=== PATIENT | female | born 1965 | race Caucasian/White ===

== ENCOUNTER 2019-04-11 13:18 | Outpatient (CLI) | payer BC, SELFPAY ==
--- NOTE | 2019-04-11 | US_ITS ---
WS: [id number] TRANSABDOMINAL PELVIC AND TRANSVAGINAL PELVIC ULTRASOUND HISTORY: PELVIC PAIN IN FEMALE COMPARISON: 04/01/2009 Uterus: 7.4 cm x 4.4 cm x 2.4 cm. Small atrophic uterus is anteverted with no mass identified. Endometrium: 2 mm. Thin atrophic uterus. Small amount of fluid along the endometrial canal. Right ovary: 1.6 cm x 1.1 cm x 1.5 cm. Small atrophic uterus. No solid or cystic mass. Left ovary: 1.6 cm x 1.0 cm x 1.4 cm. Small atrophic uterus. No solid or cystic mass. No free fluid. US/US pelvic with transvaginal IMPRESSION: 1. Thin endometrium with no mass identified. 2. No adnexal mass.
== END 2019-04-11 13:19 | disposition home or self-care (01) ==
LOC: RADOUTREAD 14:25
PROVIDERS: Family Provider Internal Medicine; PCP Internal Medicine; Visit Provider Internal Medicine
DX: Z76.89 Persons encountering health services in other specified circumstances (principal)

== ENCOUNTER 2019-04-20 09:17 | Outpatient (CLI) | payer BC, SELFPAY ==
--- NOTE | 2019-04-20 09:31 | CT_ITS ---
WS: [id number] CT ABDOMEN AND PELVIS WITH CONTRAST HISTORY: RIGHT upper quadrant pain. TECHNIQUE: Imaging performed of the abdomen and pelvis with IV contrast. Single phase imaging of the abdomen. Coronal and sagittal reformats are submitted. All CT scans at [facility] use at least one of these dose optimization techniques: automated exposure control; mA and/or kV adjustment per patient size (includes targeted exams where dose is matched to clinical indication); or iterativ e reconstruction. IV CONTRAST: Omnipaque 300; 95 mL IV. Oral contrast: Yes. DLP: 1126.37 mGycm COMPARISON: None available. Lower thorax: Benign calcified granulomas at the lung bases. Heart is normal size. Small hiatal herni a. Liver/biliary system: Normal size with no intrahepatic dilatation. Gallbladder: Normal. No gallstones or wall thickening. No pericholecystic fluid. Pancreas: Normal. Spleen: Normal. Adrenal glands: Normal. Right kidney: Cortical cyst lower pole measures 7 mm. No obstruction or calcification. Left kidney: Normal size kidney. Cortical cyst lower pole measures 7 mm. No obstruction or mass. Aorta: Mild tortuosity and atherosclerosis aorta. No aneurysm. Lymphadenopathy: None. Free fluid: None. GI tract: Unremarkable. Abdominal wall: Small umbilical hernia contains fat only. Pelvis: Normally distended urinary bladder. No free fluid or adenopathy. Uterus is atrophic and allan lly positioned. No pelvic mass. Bones: Severe thoracolumbar scoliosis. No fractures. CT/CT abdomen pelvis w con* [id number] IMPRESSION: 1. No acute abdominal or pelvic abnormalities. 2. Small hiatal hernia. 3. Mild atherosclerosis aorta. 4. Severe scoliosis.
[2019-04-20] MEDS: iohexol 300 mg/mL 50 mL Btl PO (11:03)
[2019-04-20] MEDS: iohexol 300 mg/mL 100 mL Btl IV (11:10)
== END 2019-04-20 09:18 | disposition home or self-care (01) ==
LOC: RADWPI 09:24
PROVIDERS: Family Provider Internal Medicine; PCP Internal Medicine; Visit Provider Nurse Practitioner Family
DX: R10.11 Right upper quadrant pain (principal); K44.9 Diaphragmatic hernia without obstruction or gangrene; I70.0 Atherosclerosis of aorta; M41.9 Scoliosis, unspecified
CPT/HCPCS: 74177; Q9967

== ENCOUNTER 2019-08-16 10:18 | Outpatient (CLI) | payer BC, SELFPAY ==
--- NOTE | 2019-08-16 10:19 | MM_ITS ---
WS: [id number] BILATERAL DIGITAL SCREENING MAMMOGRAPHY WITH CAD CLINICAL INFORMATION: SCREENING HISTORY: Screening mammogram. No current complaints. COMPARISON: September 09, 2017 TECHNIQUE: Bilateral CC and MLO views. FINDINGS: Scattered fibroglandular densities bilaterally. No suspicious focal mass, asymmetry, calcifications, or architectural distortion. No evidence of malignancy. MM/[place] [id number] IMPRESSION: BI-RADS: 1-Negative FOLLOW UP: 1 Year Follow-up Recommend return to annual screening mammography.
== END 2019-08-16 10:19 | disposition home or self-care (01) ==
LOC: RADSHAW 10:18
PROVIDERS: PCP Internal Medicine; Visit Provider Family Medicine
DX: Z12.31 Encounter for screening mammogram for malignant neoplasm of breast (principal)
CPT/HCPCS: 77067

== ENCOUNTER 2021-09-09 06:36 | Day surgery (SDC) | payer BC, SELFPAY ==
[2021-09-08 12:06] VITALS: BMI 25.9
[2021-09-09] VITALS (10 sets, daily range): BP systolic 106–152; BP diastolic 66–96; PULSE 59–68; RESP 14–18; TEMP 35.6–36.5; O2SAT 94–97
[2021-09-09] MEDS: acetaminophen 1,000 MG/100 ML PIGGYBACK 400 MG IV (07:10)
--- NOTE | 2021-09-09 07:10 | W.PM.OPSUD ---
Surgery/Procedure H&P Update DATE OF PROCEDURE: September 09, 2021 DATE H&P PERFORMED: 08/27/21 H&P UPDATE INFORMATION: I have reviewed H&P completed within last 30 days, I have examined patient prior to procedure and No changes to prior documentation PREOP DIAGNOSIS: hydrosalpinx, pelvic pain PLANNED PROCEDURE: Operation Date: 09/09/21 08:00 Proposed Procedures p Laparoscopic Bilateral Salpingo Oophorectomy 22429,N70.11(Bilateral) - Gabriela Landaverde MD Related Problem List Diagnoses (1) Pelvic pain: (2) Hydrosalpinx:
[2021-09-09] MEDS: ketorolac 30 mg/mL INJ IVP (07:11)
[2021-09-09] MEDS: gabapentin 300 mg Capsule PO (07:11)
[2021-09-09] MEDS: CELEcoxib 200 mg Capsule 400 MG PO (07:11)
[2021-09-09] MEDS: sodium chloride 0.9% 1,000 ML 30 ML IV (07:12)
[2021-09-09 07:23] LABS: Basophils # 0.1 10^3/uL (0.0-0.1); Basophils % 1.1 %; Eosinophils # 0.2 10^3/uL (0.0-0.8); Hematocrit 44.1 % (37.0-47.0); Hemoglobin 14.9 g/dL (11.5-15.3); Lymphocytes # 2.2 10^3/uL (0.8-4.8); Lymphocytes % 29.3 %; Mean Corpuscular HGB Conc 33.8 g/dL (30.0-36.0); Mean Corpuscular Hemoglobin 31.3 pg (28.0-34.0); Mean Corpuscular Volume 92.6 fl (81-99); Mean Platelet Volume 12.4 fL (7.4-10.4); Monocytes # 0.6 10^3/uL (0.2-0.9); Monocytes % 8.3 %; Neutrophils # 4.43 10^3/uL (1.8-7.7); Nucleated Red Blood Cells % 0 %; Platelet Count 227 10^3/cmm (130-400); Red Blood Count 4.76 10^6/uL (4.1-5.3); Red Cell Distribution Width 13.2 % (12.1-15.1); White Blood Count 7.5 10^3/uL (4.0-10.0)
--- NOTE | 2021-09-09 07:55 | ANES.PREANE2 ---
Pre-Anesthetic Assessment Height/Weight: Height 1.8 m Weight 84.368 kg Temp Pulse Resp BP Pulse Ox 97.7 F 67 16 152/96 94 09/09/21 07:02 09/09/21 07:02 09/09/21 07:02 09/09/21 07:02 09/09/21 07:02 Preop Diagnosis: hydrosalpinx, pelvic pain Operation Date: 09/09/21 08:00 Proposed Procedures p Laparoscopic Bilateral Salpingo Oophorectomy 11593,N70.11(Bilateral) - Gabriela Landaverde MD Familial anesthetic complications: None Was Beta Deja taken within 24 hours: Yes Was Clonidine taken within 24 hours: N/A Last intake: Intake Last Liquid Date 09/08/21 Last Liquid Time 23:30 Last Solid Date 09/08/21 Last Solid Time 23:30 Social No alcohol and No tobacco Exam alert, oriented x 3, clear to auscultation bilaterally and regular rate & rhythm Airway Submandibular: within normal limits Cervical ROM: within normal limits Mallampati: Class II CV/HEM Arrythmia (SVT) and Hypertension GI Gastroesophageal Reflux Disease Anesthetic Plan ASA status: 2 Anesthesia: General Medications/Allergies Home Medications Medication Instructions Recorded Confirmed Last Taken Type multivitamin 1 tab PO DAILY 10/10/19 09/09/21 09/08/21 History omeprazole 20 mg capsule,delayed 40 mg PO DAILY 10/10/19 09/09/21 09/08/21 History release sumatriptan succinate 50 mg tablet 50 mg PO Q2H PRN 10/07/20 09/09/21 09/08/21 History topiramate 100 mg tablet 100 mg PO DAILY 10/07/20 09/09/21 09/08/21 History hydrochlorothiazide 25 mg tablet 25 mg PO DAILY #90 tab 12/23/20 09/09/21 09/08/21 Rx metoprolol succinate 100 mg 150 mg PO DAILY #135 tab 12/23/20 09/09/21 09/09/21 Rx tablet,extended release 24 hr Allergies Allergy/AdvReac Type Severity Reaction Status Date / Time Penicillins Allergy ALGY-Rash Verified 09/09/21 06:59 Current Medications Generic Name Dose Route Start Last Admin Trade Name Freq PRN Reason Stop Dose Admin Sodium Chloride 1,000 mls @ 30 mls/hr 09/09/21 06:45 09/09/21 07:12 Sodium Chloride 0.9% IV 09/10/21 06:44 30 mls/hr .Q24H MARISSA Administration PFSH Anesthesia Medical History HTN (hypertension) Migraine No pertinent past medical history neghx: dm, thyroid, dvt/pe PCP: Dr. Tello SVT (supraventricular tachycardia) Surgical History History of colonoscopy S/P appendectomy S/P lumpectomy, right breast S/P tubal ligation Family History Other CAD (coronary artery disease) Cancer Hypertension Stroke Data Anesthesia : 09/09/21 07:10 09/09/21 07:10 Short CBC 09/09/21 Range/Units 07:10 WBC 7.5 (4.0-10.0) 10^3/uL Hgb 14.9 (11.5-15.3) g/dL Hct 44.1 (37.0-47.0) % MCV 92.6 (81-99) fl Plt Count 227 (130-400) 10^3/cmm Neut % (Auto) 59.0 % Neut # (Auto) 4.43 (1.8-7.7) 10^3/uL Cardiac Studies: No Data to Display
[2021-09-09] MEDS: ceFAZolin 2,000 MG in sodium chloride 0.9% (plus) 50 ML 100 MG IV (08:20)
--- NOTE | 2021-09-09 09:27 | SUR.OPER ---
Called and notified him of surgical progress.
--- NOTE | 2021-09-09 10:12 | PM.OP ---
Operative Report Date of procedure: September 09, 2021 Pre-op diagnosis: Preop Diagnosis hydrosalpinx, pelvic pain Post-op diagnosis: same with extensive omental adhesions to the anterior abdomen Post-op findings: hydrosalpinx on left. No ovary on left. normal fallopian tube on right. normal ovary on right. Procedure done: laparoscopic bilateral salpingectomy, extensive lysis of adhesion Specimens removed/disposition: bilateral fallopian tubes to pathology Surgeon: Gabriela Landaverde Anesthesia: General Estimated blood loss (mL): 5 IV fluids (mL): 1,150 Urine output (mL): 300 Complications: none Findings: extensive omental adhesions to anterior abdominal wall. hydrosalpinx on left, normal appearing tube on right, normal ovary on right. No left ovary visualized. enlarged galbladder with large stone present Condition: stable Disposition: PACU Procedure: The patient was taken to the operating room where general anesthesia was administered and found to be adequate. She was prepped and draped in the normal sterile fashion in the dorsal lithotomy position in [facility]. A Mendoza catheter was placed. A weighted speculum was placed into the vagina and the anterior lip of the cervix grasped with a single-tooth tenaculum. A [employer] uterine manipulator was placed. The gloves were changed and attention was turned to the laparoscopic portion of the case. A 5 mm supraumbilical incision was made. The 5 mm trocar was placed using the easy view trocar. Intra-abdominal placement was confirmed and CO2 gas was used to insufflate the abdomen. Immediately upon entering, I visualized extensive omental adhesions to the umbilical area. I was able to push through an adhesion to see the pelvis. Using direct visualization and illumination of the abdominal wall, two 5 mm incisions were made low and lateral. One on the left and one on the right. The 5mm trochars were then placed under direct visualization. Using the laparoscopic cautery, the omental adhesions were taken down. The abdominal wall was now clear of adhesions and the pelvis could be seen. A look at the liver and galbladder showed and enlarged galbladder with what appeared to be a large stone. Using the uterine manipulator and the grasper, the fallopian tubes were identified. Using the laparoscopic cautery, the fallopian tube was clamped cauterized and cut. First on the right, then on the left. There was some bleeding from the pedicle on the right. This was cauterized and irrigated. There was now, excellent hemostasis post removal of the bilateral tubes. The right ovary was left in place, due to the potential for re-bleeding. No left ovary was visualized. Pictures were taken. All instruments were removed. The abdomen was desufflated. The incisions were closed with 4-0 Vicryl. she had 10 ml of lidocaine injected in the op sites. The mendoza catheter was removed. The patient tolerated the procedure well. Sponge lap and needle counts were correct x3. She was taken to the recovery room in stable condition.
--- NOTE | 2021-09-09 10:28 | PM.DCS ---
Discharge Providers Date of Admission: 09/09/21 Date of Discharge: September 09, 2021 Attending Provider at Discharge: Gabriela Landaverde MD Primary Care Provider: Capo Tello DO Diagnoses at Discharge Discharge Diagnosis (1) Pelvic pain: Status: Acute (2) Hydrosalpinx: Status: Acute Hospital Course Hospital Course The patient was admitted for surgery. She did well postoperatively and was ready for discharge. Physical Exam Urinary Catheter Management: Lopez: Cath Placed During This Visit: yes, but has since been removed by the nurse Urinary Catheter Date of Insertion: 09/09/21 Urinary Catheter Time of Insertion: 08:55 Date Urinary Catheter Removed: 09/09/21 Time Urinary Catheter Discontinued: 10:05 Discharge Data Studies Completed and Pending Pending at discharge Category Date Time Status ES surgery / GI images Routine Exams 09/09/21 07:44 Taken Basic Metabolic Panel Routine Lab 09/09/21 08:45 Ordered Urine Culture Routine Lab 09/09/21 08:55 Received Pathology: Surgical [PTH] Routine Pth 09/09/21 10:00 Ordered Laboratory Results WBC 7.5 10^3/uL (4.0-10.0) 09/09/21 07:10 RBC 4.76 10^6/uL (4.1-5.3) 09/09/21 07:10 Hgb 14.9 g/dL (11.5-15.3) 09/09/21 07:10 Hct 44.1 % (37.0-47.0) 09/09/21 07:10 MCV 92.6 fl (81-99) 09/09/21 07:10 MCH 31.3 pg (28.0-34.0) 09/09/21 07:10 MCHC 33.8 g/dL (30.0-36.0) 09/09/21 07:10 RDW 13.2 % (12.1-15.1) 09/09/21 07:10 Plt Count 227 10^3/cmm (130-400) 09/09/21 07:10 MPV 12.4 fL (7.4-10.4) H 09/09/21 07:10 Neut % (Auto) 59.0 % 09/09/21 07:10 Lymph % (Auto) 29.3 % 09/09/21 07:10 [place] % (Auto) 8.3 % 09/09/21 07:10 Eos % (Auto) 2.0 % 09/09/21 07:10 Baso % (Auto) 1.1 % 09/09/21 07:10 Neut # (Auto) 4.43 10^3/uL (1.8-7.7) 09/09/21 07:10 Lymph # (Auto) 2.2 10^3/uL (0.8-4.8) 09/09/21 07:10 [place] # (Auto) 0.6 10^3/uL (0.2-0.9) 09/09/21 07:10 Eos # (Auto) 0.2 10^3/uL (0.0-0.8) 09/09/21 07:10 Baso # (Auto) 0.1 10^3/uL (0.0-0.1) 09/09/21 07:10 Nucleated RBC % (auto) 0 % 09/09/21 07:10 Nucleated RBCs # 0.0 /100WBC 09/09/21 07:10 Sodium Cancelled 09/09/21 08:16 Potassium Cancelled 09/09/21 08:16 Chloride Cancelled 09/09/21 08:16 Carbon Dioxide Cancelled 09/09/21 08:16 Anion Gap Cancelled 09/09/21 08:16 BUN Cancelled 09/09/21 08:16 Creatinine Cancelled 09/09/21 08:16 GFR Calculation Cancelled 09/09/21 08:16 Glucose Cancelled 09/09/21 08:16 Calculated Osmolality Cancelled 09/09/21 08:16 Calcium Cancelled 09/09/21 08:16 Vitals Last Vital Signs Temp 97.7 F 09/09/21 07:02 Pulse 67 09/09/21 07:02 Resp 16 09/09/21 07:02 BP 152/96 09/09/21 07:02 Pulse Ox 94 09/09/21 07:02 Discharge Plan Discharge Patient Disposition: Home Condition: Stable Prescriptions: New hydrocodone-acetaminophen 5-325 mg tablet 1 tab PO Q4H Qty: 30 0RF Continued topiramate 100 mg tablet 100 mg PO DAILY 0RF sumatriptan succinate 50 mg tablet 50 mg PO Q2H PRN (Reason: Migraine Headache) 0RF Rx Instructions: do not exceed 4 doses per 24 hrs omeprazole 20 mg capsule,delayed release(DR/EC) 40 mg PO DAILY 0RF multivitamin Tablet 1 tab PO DAILY 0RF hydrochlorothiazide 25 mg tablet 25 mg PO DAILY Qty: 90 3RF metoprolol succinate 100 mg tablet extended release 24 hr 150 mg PO DAILY Qty: 135 3RF Discharge Orders: Discharge Order (Routine); Ordered 09/09/21 Ordered By: Gabriela Landaverde Discharge Attestations Time Spent in Discharge Care*: less than 30 min Quality Metrics Clinical Quality Measures [ No reported AMI, CVA or VTE this stay] Coding Level of Care Code Acute g FW DC note Diagnoses Pelvic pain R10.2 Hydrosalpinx N70.11
--- NOTE | 2021-09-09 10:29 | W.PM.OPSUD ---
Surgery/Procedure H&P Update DATE OF PROCEDURE: September 09, 2021 DATE H&P PERFORMED: 09/04/21 PREOP DIAGNOSIS: hydrosalpinx, pelvic pain PLANNED PROCEDURE: Operation Date: 09/09/21 08:00 Proposed Procedures p Laparoscopic Bilateral Salpingo Oophorectomy 43938,N70.11(Bilateral) - Gabriela Landaverde MD
[2021-09-09] MEDS: HYDROcodone-acetaminophen 5-325 mg Tablet 1 TAB PO (11:21)
--- NOTE | 2021-09-09 15:39 | ANE.PACU2 ---
Inpatient post-anesthesia follow up: Airway intact: Yes Vital signs: Temperature 96.0 F Pulse Rate 64 Respiratory Rate 18 Blood Pressure 128/72 Pulse Oximetry 96 Oxygen Delivery Me thod Room Air Oxygen Flow Rate Fraction of Inspir ed Oxygen Hydration adequate: Yes Nausea and vomiting: No Pain level: 3 Mental status: Baseline
== END 2021-09-09 11:33 | disposition home or self-care (01) ==
PROVIDERS: PCP Internal Medicine; Visit Provider Obstetrics & Gynecology
PROC: (CPT 58661; 2021-09-09 07:50)
PROC: (CPT 58661; 2021-09-09 07:50)
DX: N70.11 Chronic salpingitis (principal); R10.2 Pelvic and perineal pain; N73.6 Female pelvic peritoneal adhesions (postinfective); I10 Essential (primary) hypertension
CPT/HCPCS: 58661; 36415; 85025; 87086; 88302; J1100; J1885; J2250; J2405; J2704; J3010; J3490; J7030

== ENCOUNTER → 2021-09-26 13:39 | Outpatient (BNVA) | payer BC, SELFPAY | PROVIDERS: PCP Internal Medicine; Visit Provider Obstetrics & Gynecology | DX: R10.9 Unspecified abdominal pain (principal); R39.15 Urgency of urination | CPT/HCPCS: 81000; 87086 ==

== ENCOUNTER 2021-11-05 07:51 | Outpatient (CLI) | payer BC, SELFPAY ==
--- NOTE | 2021-11-05 08:00 | NM_ITS ---
WS: [id number] NUCLEAR MEDICINE HIDA SCAN CLINICAL INFORMATION: enlarged gallbladder TECHNIQUE: Following intravenous administration of 7.8 mCi of technetium 99m mebrofenin, images of th e abdomen were obtained over the course of 60 minutes. Next, gallbladder ejection fraction was determ ined by obtaining preprandial and one-hour postprandial images of the gallbladder following oral luciana stion of Ensure. COMPARISON: FINDINGS: Normal hepatic uptake at 5 minutes. Hepatomegaly. Normal hepatic excretion. Gallbladder is visualized by 15 minutes. No evidence of acute cholecystitis. Normal common bile duct and small bowel activity. Gallbladder ejection fraction 63% within normal pierce its. No evidence of chronic cholecystitis. NM/NM hepatobiliary w phar* [id number] IMPRESSION: 1. No evidence of acute or chronic cholecystitis. 2. Gallbladder ejection fraction 63% within normal limits
== END 2021-11-05 07:52 | disposition home or self-care (01) ==
PROVIDERS: PCP Internal Medicine; Visit Provider Surgery
DX: K82.8 Other specified diseases of gallbladder (principal)
CPT/HCPCS: 78227; A9537

== ENCOUNTER 2021-12-03 06:09 | Day surgery (SDC) | payer BC, SELFPAY ==
[2021-12-01 11:47] VITALS: BMI 35.1
[2021-12-03 06:25] VITALS: BP 112/88; PULSE 89; RESP 18; TEMP 36.1; O2SAT 94
[2021-12-03] MEDS: sodium chloride 0.9% 1,000 ML 30 ML IV (06:49)
--- NOTE | 2021-12-03 06:55 | ANES.PREANE2 ---
Pre-Anesthetic Assessment Height/Weight: Height 1.55 m Weight 84.368 kg Temp Pulse Resp BP Pulse Ox O2 Del Method 97 F L 89 18 112/88 94 12/03/21 06:25 12/03/21 06:25 12/03/21 06:25 12/03/21 06:25 12/03/21 06:25 12/03/21 06:25 Preop Diagnosis: hydrosalpinx, pelvic pain Operation Date: 12/03/21 07:30 Proposed Procedures p EGD and colonoscopy 95263,73340,K21.9,Z86.010,Z12.11(Not Applicable) - Zeke Yung DO s Colonoscopy(Not Applicable) - Zeke Yung DO Familial anesthetic complications: none Was Beta Deja taken within 24 hours: Yes Was Clonidine taken within 24 hours: N/A Last intake: Intake Last Liquid Date 12/02/21 Last Liquid Time 22:45 Last Solid Date 12/01/21 Last Solid Time 23:30 Last Intake: 22:45 Social No alcohol and No tobacco Exam alert, oriented x 3, clear to auscultation bilaterally and regular rate & rhythm Airway Submandibular: within normal limits Cervical ROM: within normal limits Mallampati: Class I Dentition: false Pulmonary None reported CV/HEM Hypertension and Palpitations (HX SVT, neg stress test 2 years ago. ) None reported Hepatic None reported GI Gastroesophageal Reflux Disease Metabolic None reported Musc/skel Lower Back Pain and Osteoarthritis/DJD Neuropsych Headache Anesthetic Plan ASA status: 3 Anesthesia: MAC Medications/Allergies Home Medications Medication Instructions Recorded Confirmed Last Taken Type multivitamin 1 tab PO DAILY 10/10/19 12/01/21 12/01/21 History omeprazole 20 mg capsule,delayed 40 mg PO DAILY 10/10/19 12/01/21 12/01/21 History release sumatriptan succinate 50 mg tablet 50 mg PO Q2H PRN Migraine Headache 10/07/20 12/01/21 09/08/21 History topiramate 100 mg tablet 100 mg PO DAILY 10/07/20 12/01/21 12/01/21 History hydrochlorothiazide 25 mg tablet 25 mg PO DAILY #90 tabs 12/23/20 12/01/21 12/01/21 Rx metoprolol succinate 100 mg 150 mg PO DAILY #135 tabs 12/23/20 12/03/21 12/03/21 Rx tablet,extended release 24 hr cranberry fruit concentrate 450 mg 450 mg PO DAILY 10/07/21 12/01/21 12/01/21 History tablet Allergies Allergy/AdvReac Type Severity Reaction Status Date / Time Penicillins Allergy ALGY-Rash Verified 10/20/21 08:45 Current Medications Generic Name Dose Route Start Last Admin Trade Name Yunielq PRN Reason Stop Dose Admin Sodium Chloride 1,000 mls @ 30 mls/hr 12/03/21 06:15 12/03/21 06:49 Sodium Chloride 0.9% IV 12/04/21 06:14 30 mls/hr .Q24H MARISSA Administration PFSH Anesthesia Medical History History of colon polyps HTN (hypertension) Migraine No pertinent past medical history neghx: dm, thyroid, dvt/pe PCP: Dr. Tello SVT (supraventricular tachycardia) Surgical History History of colonoscopy S/P appendectomy S/P lumpectomy, right breast S/P tubal ligation Family History Other CAD (coronary artery disease) Cancer Hypertension Stroke Social History Smoking and tobacco status: former smoker (quit 2009) Data Anesthesia Cardiac Studies: No Data to Display
--- NOTE | 2021-12-03 07:00 | PM.HP ---
Providers/Chief Complaint Primary Care Provider: Capo Tello DO Chief Complaint: Abdominal pain History of Present Illness Ava Edward is a 56 year old female here for EGD and colonoscopy Medications/Allergies Home Medications Medication Instructions Recorded Confirmed Last Taken Type multivitamin 1 tab PO DAILY 10/10/19 12/01/21 12/01/21 History omeprazole 20 mg capsule,delayed 40 mg PO DAILY 10/10/19 12/01/21 12/01/21 History release sumatriptan succinate 50 mg tablet 50 mg PO Q2H PRN Migraine Headache 10/07/20 12/01/21 09/08/21 History topiramate 100 mg tablet 100 mg PO DAILY 10/07/20 12/01/21 12/01/21 History hydrochlorothiazide 25 mg tablet 25 mg PO DAILY #90 tabs 12/23/20 12/01/21 12/01/21 Rx metoprolol succinate 100 mg 150 mg PO DAILY #135 tabs 12/23/20 12/03/21 12/03/21 Rx tablet,extended release 24 hr cranberry fruit concentrate 450 mg 450 mg PO DAILY 10/07/21 12/01/21 12/01/21 History tablet Allergies Allergy/AdvReac Type Severity Reaction Status Date / Time Penicillins Allergy ALGY-Rash Verified 10/20/21 08:45 PFSH Acute PFSH: Medical History History of colon polyps HTN (hypertension) Migraine No pertinent past medical history neghx: dm, thyroid, dvt/pe PCP: Dr. Tello SVT (supraventricular tachycardia) Surgical History History of colonoscopy S/P appendectomy S/P lumpectomy, right breast S/P tubal ligation Family History Other CAD (coronary artery disease) Cancer Hypertension Stroke Social History Smoking and tobacco status: former smoker (quit 2009) Vitals/I&O/Wt Last Vital Signs Temp 97 F L 12/03/21 06:25 Pulse 89 12/03/21 06:25 Resp 18 12/03/21 06:25 BP 112/88 12/03/21 06:25 Pulse Ox 94 12/03/21 06:25 O2 Del Method 12/03/21 06:25 Weight last 48 hrs Weight 186 lb A&P Assessment and plan (1) History of colon polyps: (2) GERD (gastroesophageal reflux disease): Qualifiers: Esophagitis presence: esophagitis presence not specified Qualified Code(s): K21.9 - Gastro-esophageal reflux disease without esophagitis Plan EGD and colonoscopy Attestations Medical Necessity Statement*: Home Coding Level of Care Code Acute 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
[2021-12-03 07:45] VITALS: BP 120/80; PULSE 70; RESP 16; TEMP 36.1; O2SAT 95
[2021-12-03 08:04] VITALS: BP 134/82; PULSE 74; RESP 18; O2SAT 94
--- NOTE | 2021-12-03 08:41 | ANE.PACU2 ---
Inpatient post-anesthesia follow up: Airway intact: Yes Vital signs: Temperature 97 F Pulse Rate 74 Respiratory Rate 18 Blood Pressure 134/82 Pulse Oximetry 94 Oxygen Delivery Me thod Room Air Oxygen Flow Rate Fraction of Inspir ed Oxygen Hydration adequate: Yes Nausea and vomiting: No Pain level: 1 Mental status: Baseline
== END 2021-12-03 08:18 | disposition home or self-care (01) ==
PROVIDERS: PCP Internal Medicine; Visit Provider Surgery
PROC: 0DJD8ZZ Inspection of Lower Intestinal Tract, Via Natural or Artificial Opening Endoscopic (ICD-10-PCS; CPT 45378; 2021-12-03 07:30)
PROC: 0DJ08ZZ Inspection of Upper Intestinal Tract, Via Natural or Artificial Opening Endoscopic (ICD-10-PCS; CPT 43235; 2021-12-03 07:30)
DX: Z12.11 Encounter for screening for malignant neoplasm of colon (principal); Z86.010 Personal history of colon polyps; K21.9 Gastro-esophageal reflux disease without esophagitis; K57.30 Diverticulosis of large intestine without perforation or abscess without bleeding; K64.8 Other hemorrhoids; D12.5 Benign neoplasm of sigmoid colon; K29.50 Unspecified chronic gastritis without bleeding; I10 Essential (primary) hypertension; Z87.891 Personal history of nicotine dependence
CPT/HCPCS: 43239; 45385; 88305; J2704; J7030

== ENCOUNTER 2022-03-27 11:04 | Outpatient (CLI) | payer BC, SELFPAY ==
--- NOTE | 2022-03-27 11:14 | MM_ITS ---
WS: [id number] VIEWS: MLO and CC views both breasts. 3D digital tomosynthesis is also included in this exam. Comparison made with prior exam of 06/27/2014, 10/25/2015, 09/09/2017, 08/16/2019,. Findings: Stable appearing nodular densities in both breasts. No suspicious calcification or mass. Scattered f ibroglandular densities in both breasts. MM/[id number] Impression: BI-RADS: 2-Benign FOLLOW-UP: 1 Year Follow-up This mammogram was also analyzed by the Computer Aided Detection System R2 Imag e Precision As[employer]er Bench.
== END 2022-03-27 11:05 | disposition home or self-care (01) ==
LOC: RAD 11:04
PROVIDERS: PCP Internal Medicine; Referring Provider Family Medicine; Visit Provider Internal Medicine
DX: Z12.31 Encounter for screening mammogram for malignant neoplasm of breast (principal)
CPT/HCPCS: 77063; 77067

== ENCOUNTER 2022-05-07 14:27 | Outpatient (CLI) | payer BC, SELFPAY ==
--- NOTE | 2022-05-07 | MR_ITS ---
WS: [id number] MRI LEFT KNEE HISTORY: LT KNEE INTERNAL DERANGEMENT COMPARISON: Radiograph 04/13/2022 Anterior cruciate ligament: Intact. Posterior cruciate ligament: Intact. Medial collateral ligament: Mild thickening and increased signal of the MCL and adjacent soft tissues . Partial tear proximal MCL. Posterior lateral corner structures: Intact. Medial menisci: Mild intrasubstance degeneration in the posterior horn. No definite meniscal tears. S een only on one sequence is increased signal towards the free edge of the posterior horn. Lateral meniscus: Intact. Normal signal, size and shape. Extensor mechanism: Distal quadriceps tendon and patellar tendons are intact. Fluid and soft tissue: No joint effusion. 3.4 cm Hernandez's cyst. Osseous and articular structures: Patellofemoral compartment: Normal. Medial compartment: Normal joint space. There is very minimal increased signal along the medial femor al condyle towards the intercondylar notch. No full-thickness defect. No marrow edema. Lateral compartment: Negative. MR/MR knee LT wo con* [id number] IMPRESSION: 1. Thickening with abnormal signal throughout the MCL with partial tear proxim ally. 2. Intrasubstance degeneration in the posterior medial meniscus. Abnormal sign al seen only on one image towards the meniscal free edge. Indeterminate for rad ial tear. 3. No marrow edema or fracture. 4. Small Hernandez's cyst.
== END 2022-05-07 14:28 | disposition home or self-care (01) ==
LOC: RAD 14:38
PROVIDERS: PCP Internal Medicine; Visit Provider Internal Medicine
DX: M23.92 Unspecified internal derangement of left knee (principal); M71.22 Synovial cyst of popliteal space [Baker], left knee
CPT/HCPCS: 73721

== ENCOUNTER → 2022-10-06 15:23 | Outpatient (BNVA) | payer BC, SELFPAY | PROVIDERS: PCP Internal Medicine; Visit Provider Internal Medicine Cardiovascular Disease | DX: R00.2 Palpitations (principal) | CPT/HCPCS: 93005 ==

== ENCOUNTER 2023-08-11 12:35 | Outpatient (CLI) | payer BC, SELFPAY ==
--- NOTE | 2023-08-11 12:39 | CT_ITS ---
WS: [id number] CT ABDOMEN AND PELVIS WITH CONTRAST HISTORY: ABDOMINAL PAIN TECHNIQUE: Imaging performed of the abdomen and pelvis with IV contrast. Single phase imaging of the abdomen. Coronal and sagittal reformats are submitted. All CT scans at [facility] use at [address] one of these dose optimization techniques: automated exposure control; mA and/or kV adjustment per patient size (includes targeted exams where dose is matched to clinical indication); or iterative re construction. IV CONTRAST: Omnipaque 350; 100 mL IV. Oral contrast: Yes. DLP: 713.73 mGy.cm COMPARISON: 04/20/2019 Lower thorax: A few scattered granulomata at the lung bases. Heart is normal size. Small hiatal herni a. Liver/biliary system: Normal size with no intrahepatic dilatation. Gallbladder: Normal. No gallstones or wall thickening. No pericholecystic fluid. Pancreas: Normal size pancreas and pancreatic duct. No adjacent inflammation. Spleen: Normal size spleen. No mass or infarct. Adrenal glands: Normal. Right kidney: Normal size kidney. 1.0 cm cyst lower pole cortex. No renal obstruction. Left kidney: Normal. Aorta: Mild atherosclerosis with no aneurysm. Lymphadenopathy: None. Free fluid: None. GI tract: Small hiatal hernia. Negative stomach. No small bowel obstruction. No wall thickening. The appendix is been removed. No significant constipation. No mucosal thickening or edema throughout the colon. No significant diverticular disease. Abdominal wall: Fat containing umbilical hernia. Pelvis: No free fluid or adenopathy within the pelvis. Prior hysterectomy. Negative urinary bladder. Bones: Severe scoliosis lumbar spine to the LEFT. Mixed lordotic and lytic lesion in the RIGHT ilium with mild progression since 2019. There is no destruction and this appears nonaggressive. CT/CT abdomen pelvis w con* [id number] IMPRESSION: 1. No acute abdominal or pelvic abnormalities. 2. No renal obstruction. 3. Prior appendectomy. 4. No evidence for colonic obstruction or colitis. 5. No free fluid.
[2023-08-11] MEDS: iohexol 350 mg/mL 500 mL Btl (per mL) PO (13:21)
[2023-08-11] MEDS: iohexol 350 mg/mL 500 mL Btl (per mL) IV (14:15)
== END 2023-08-11 12:36 | disposition home or self-care (01) ==
PROVIDERS: PCP Internal Medicine; Visit Provider Internal Medicine
DX: R10.9 Unspecified abdominal pain (principal); J84.10 Pulmonary fibrosis, unspecified; K44.9 Diaphragmatic hernia without obstruction or gangrene; N28.1 Cyst of kidney, acquired; K42.9 Umbilical hernia without obstruction or gangrene; Z98.890 Other specified postprocedural states; M41.9 Scoliosis, unspecified; G95.89 Other specified diseases of spinal cord
CPT/HCPCS: 74177; Q9967

== ENCOUNTER 2024-10-02 07:44 | Outpatient (CLI) | payer BC, SELFPAY ==
--- NOTE | 2024-10-02 07:53 | CT_ITS ---
WS: [id number] CT ABDOMEN AND PELVIS WITH CONTRAST HISTORY: RLQ PAIN TECHNIQUE: Imaging performed of the abdomen and pelvis with IV contrast. Single phase imaging of the abdomen. Coronal and sagittal reformats are submitted. All CT scans at [facility] use at least one of these dose optimization techniques: automated exposure control; mA and/or kV adjustment per patient size (includes targeted exams where dose is matched to clinical indication); or iterative reconstruction. IV CONTRAST: Omnipaque 350; 100 mL IV. Oral contrast: Yes. DLP: 805.81 mGy.cm COMPARISON: 08/11/2023, 08/03/2023 ultrasound Lower thorax: Benign calcified granuloma at the bases. Heart is normal size. Moderate-sized hiatal hernia. Liver/biliary system: Normal size with no intrahepatic dilatation. Gallbladder: Normal. No gallstones or wall thickening. No pericholecystic fluid. Pancreas: Normal size pancreas and pancreatic duct. No adjacent inflammation. Spleen: Normal size spleen. No mass or infarct. Adrenal glands: Normal. Right kidney: Normal size kidney. No obstruction. 11 mm cortical cyst lower pole. Left kidney: Normal. Aorta: Tortuous ectatic atherosclerotic changes within the abdominal aorta. Lymphadenopathy: None. Free fluid: None. GI tract: No stomach abnormality. No small bowel obstruction. Prior appendectomy. No colitis or wall thickening. Abdominal wall: Fat containing umbilical hernia. Pelvis: No free fluid or adenopathy within the pelvis. Uterus is normally positioned. No adnexal masses. Urinary bladder is partially distended. Bones: Marked LEFT scoliosis lumbar spine. Reidentified is the mixed sclerotic lytic lesion in the RIGHT ilium which has been present since 2019. Mixed density lesion is increased in size slightly since 2019 now measuring 2.4 x 1.2 cm. There is no associated mass or pathologic fracture. CT/CT abdomen pelvis w con* [id number] IMPRESSION: 1. Prior appendectomy. 2. . No ascites or adenopathy in the abdomen or pelvis. 3. Moderate size hiatal hernia. 4. No renal obstruction. 5. Mixed sclerotic lytic lesion in the RIGHT ilium has been present since 04/20 and has slightly increased in size and mild bony expansion. Consider eval uation by bone scan imaging. This lesion has benign features but with slight in crease in size recommend bone scan imaging. This may be an enchondroma. Differe ntial would include low-grade neoplasm or metastatic disease.
[2024-10-02] MEDS: iohexol 350 mg/mL 500 mL Btl (per mL) PO (09:19)
[2024-10-02] MEDS: iohexol 350 mg/mL 500 mL Btl (per mL) IV (09:21)
== END 2024-10-02 07:45 | disposition home or self-care (01) ==
LOC: RAD 07:45
PROVIDERS: PCP Family Medicine; Visit Provider Family Medicine
DX: R10.31 Right lower quadrant pain (principal); Z90.49 Acquired absence of other specified parts of digestive tract; L92.9 Granulomatous disorder of the skin and subcutaneous tissue, unspecified; K44.9 Diaphragmatic hernia without obstruction or gangrene; N28.1 Cyst of kidney, acquired; K42.9 Umbilical hernia without obstruction or gangrene; M41.9 Scoliosis, unspecified; M89.9 Disorder of bone, unspecified
CPT/HCPCS: 74177

== ENCOUNTER 2024-10-16 08:38 | Outpatient (CLI) | payer BC, SELFPAY ==
--- NOTE | 2024-10-16 08:55 | NM_ITS ---
WS: [id number] NUCLEAR MEDICINE BONE SCAN Radiopharmaceutical: 24.2 Tc-99m MDP mCi IV Injection site: Antecubital Postinjection imaging delay: 1 hr CLINICAL INFORMATION: DISORDER OF BONE, UNSPECIFIED COMPARISON: CT 10/02/2024 FINDINGS: Bone lesions: No corresponding abnormal radiotracer uptake in the RIGHT ilium that would correspond with the bony lesion seen on the prior CT. Soft tissue contours: Normal. Kidneys: Normal. Other findings: Thoracolumbar scoliosis. Degenerative type uptake both shoulders both knees and both ankles. Increased radiotracer uptake in the RIGHT maxillary sinus may be due to chronic sinusitis. This be further evaluated with sinus CT. NM/NM bone scan whole body* [id number] IMPRESSION: 1. No abnormal uptake in the RIGHT iliac wing to correspond to the bone lesion seen on the prior CT. Recommend continued surveillance with CT. 2. Increased radiotracer uptake in the RIGHT maxillary sinus may be due to chr onic sinusitis. This be further evaluated with sinus CT.
== END 2024-10-16 08:39 | disposition home or self-care (01) ==
PROVIDERS: Family Provider Chiropractor; PCP Family Medicine; Visit Provider Family Medicine
DX: M89.9 Disorder of bone, unspecified (principal)
CPT/HCPCS: 78306; A9561

== ENCOUNTER 2024-11-29 11:53 | Outpatient (CLI) | payer BC, SELFPAY ==
--- NOTE | 2024-11-29 12:08 | MR_ITS ---
WS: [id number] EXAMINATION: MR hip RT wo con* [id number] ORDER DATE: 11/29/2024 12:[address] 2024 and 04/20/2019 HISTORY: ILIAC CREST BONE PAIN CONTRAST: None. TECHNIQUE: Coronal STIR of the Pelvis. Coronal proton density, coronal T1, axial T2 fat sat, axial T1, sagittal T2 fat sat, and sagittal T1 performed of the hip. FINDINGS: Again seen is the mixed lytic and sclerotic lesion in the RIGHT iliac wing which has been present dating back to 2019. This demonstrates T2 hyperintensity with sclerotic margins and slightly expansile today on the MRI. No surrounding edema. This measures approximately 12 mm. This is slightly increased in size since 2019 as previously discussed but most likely benign considering relative stability. Primary consideration would be enchondroma. Recommend continued surveillance especially if history of malignancy or metastatic disease. No other suspicious findings. Moderate degenerative narrowing both hips. Normal bone marrow signal in the bony sacrum. MR/MR hip RT wo con* [id number] IMPRESSION: See discussion of the RIGHT iliac wing lesion above. Benign etiology is favored considering relative stability since 2019. Recommend follow-up surveillance to ensure stability especially if history of malignancy. Follow-up could be perf ormed with CT abdomen pelvis or MRI in 6 to 12 months.
== END 2024-11-29 11:54 | disposition home or self-care (01) ==
LOC: RAD 11:54
PROVIDERS: PCP Family Medicine; Visit Provider Family Medicine
DX: M89.8X8 Other specified disorders of bone, other site (principal); M99.85 Other biomechanical lesions of pelvic region
CPT/HCPCS: 73721